=== PATIENT | male | born 1940 | race Caucasian/White ===

== ENCOUNTER 2022-05-28 06:59 | Observation (INO) ==
[~2022-05-28 06:59] MED LIST: LIDOCAINE 1% LOCAL 20 ML VIAL ONE
--- NOTE | 2022-05-28 08:06 | Pre Anesthesia Assessment ---
Date of Service May 28, 2022 Pre Sedation Assessment Vital Signs Temp Pulse Pulse Resp BP Pulse Ox O2 Del Method 05/29/22 11:25 36.5 C 67 18 128/65 96 Room Air 05/29/22 11:11 36.5 C 70 18 152/87 H 94 05/29/22 08:00 57 L 05/29/22 07:26 36.5 C 70 18 152/87 H 94 Room Air 05/29/22 03:05 36.9 C 58 L 18 121/66 95 Room Air 05/28/22 23:15 36.6 C 73 18 118/74 93 Room Air 05/28/22 19:13 36.4 C L 77 18 117/68 93 Room Air 05/28/22 16:00 62 20 119/73 97 Room Air 05/28/22 15:17 49 L Cardiovascular + regular rate and + regular rhythm + S1 normal, + S2 normal and + murmur (2/6 NEL) + femoral pulses present and + radial pulses present; no JVD and no carotid bruit no edema Respiratory no retractions and no uses accessory muscles + clear to auscultation bilaterally; no crackles, no rales, no rhonchi and no wheezes Pre-Sedation Airway Assessment Smoking Status: Former smoker Hx Sleep Apnea: No Short, Thick Neck: No Thyromental Distance: > or= 3.5 Finger Breadths Oral Cavity: + WNL Mallampati Class: II ASA: ASA3 NPO Status Date of Last Intake of Fluids: 05/28/22 Time of Last Intake of Fluids: 06:00 Date of Last Intake of Solid Food: 05/27/22 Time of Last Intake of Solid Foods: 22:00 Procedure Planning Contraindications for Sedation: none Current Medications Reviewed: Yes Notes The planned sedation has been discussed with the patient. Informed Consent was obtained. I have identified the patient, determined the appropriateness of sedation and have assessed the patient immediately prior to the procedure. All medicine(s) and interventions are by my order.
--- NOTE | 2022-05-28 08:06 | History & Physical Bridge Note ---
Date of Service May 28, 2022 History & Physical Bridge Note I have examined the patient, reviewed the History & Physical and in the interval since the performance of the History & Physical I have noted the following changes of clinical significance: no changes noted
[2022-05-28] MEDS ORDERED: niCARdipine HCL INJ 2.5 MG/ML 10 ML AMP ONE (08:15)
[2022-05-28] MEDS ORDERED: HEPARIN (PORCINE) 1000 UNIT/ML 10 ML (CATH LAB USE ONLY) ONE ×2 (08:15→09:47)
[2022-05-28] MEDS ORDERED: MIDAZOLAM HCL 1 MG/ML 2ML VIAL ONE ×3 (08:15→09:40)
[2022-05-28] MEDS ORDERED: fentaNYL citrate 100 MCG/2 ML VIAL ONE ×2 (08:15→09:40)
[2022-05-28] MEDS ORDERED: NITROGLYCERIN/D5W 100MCG/ML 20ML SYR ONE (08:16)
--- NOTE | 2022-05-28 09:30 | Post Anesthesia Assessment ---
Date of Service May 28, 2022 Post Sedation Assessment Vital Signs Temp Pulse Pulse Resp BP Pulse Ox O2 Del Method 05/29/22 11:25 36.5 C 67 18 128/65 96 Room Air 05/29/22 11:11 36.5 C 70 18 152/87 H 94 05/29/22 08:00 57 L 05/29/22 07:26 36.5 C 70 18 152/87 H 94 Room Air 05/29/22 03:05 36.9 C 58 L 18 121/66 95 Room Air 05/28/22 23:15 36.6 C 73 18 118/74 93 Room Air 05/28/22 19:13 36.4 C L 77 18 117/68 93 Room Air 05/28/22 16:00 62 20 119/73 97 Room Air 05/28/22 15:17 49 L Recovery Score Respiration: Deep Breath/Cough Circulation: +/-20% PreAnes Value Consciousness: Arouseable (by name) Oxygen Saturation: > 92% On Room Air Discharge Sedation Level of Care: Phase I Post Sedation Plan On clinical assessment, the patient appears to have tolerated the sedation without complications. Patient is recovering as anticipated. Patient will continue to be monitored by nursing and may be discharged when sedation discharge criteria are met per below protocol. Upon Completions of procedure up to 15 minutes continue every 5 minute vital signs and the P.A.R. score; then discharge to a Phase I or Fast Track to Phase II per the following guidelines: * Discharge Patient to appropriate Phase II area if PAR is 8 or greater or return to pre- procedure baseline. The post - procedure orders will be as directed. * If PAR score is less than 8 or not return to pre-procedure baseline then patient will follow Phase I monitoring till PAR is reached for Phase II. The Phase I may be done in procedure room or may call to secure a Phase I area. * If naloxone or flumazenil are used for reversal, hold in Phase I for continued monitoring from when last reversal dose was given for a minimum of 60 minutes or longer pending the nurse and/or physician discretion of patient condition before discharge to Phase II. Please call the Sedation Physician to re-evaluate and complete post-note for discharge to Phase II area. Do NOT discharge from procedure sedation or Phase 1 until post- sedation evaluation note is complete by procedure /sedation MD Sedation Discharge Instructions to be given to the patient at discharge to home.
--- NOTE | 2022-05-28 09:34 | Cardiac Catheterization ---
Cardiac Cath Procedure Full Procedure Date May 28, 2022 Pre-Procedure Diagnosis Pre-Procedure Diagnosis: Angina, Positive Stress Test and Cardiothoracic Symptom AUC Score AUC Score: 7 Post-Procedure Diagnosis Post-Procedure Diagnosis: Severe CAD and Elevated Intracardiac Pressures Procedure(s) Performed Procedure(s) Performed: Coronary Angiography and Left Heart Cath [employer] Specialist Александр Reaves DO Machine Worker(s) Gene STENCIL MACHINE OPERATOR Estimated Blood Loss Estimated Blood Loss: 5cc Medication(s) Medication(s): Fentanyl, Lidocaine 1% and Versed Summary of Findings 80% mid Lcx 50% mid LAD 15mmHg peak to peak gradient consistent with mild aortic stenosis. Hemodynamics Rest Ao:: 149/57/91 Final Ao: 140/65/96 LV: 151/3/19 Recommendations Recommendations: PCI without planned CABG Specimens Specimens: None Radiation Exposure (mGy) 590 Contrast (mls) 25 Fluids (cc crystalloids) Fluids (cc crystalloids): 136 nss Drains Drains: N/A Anesthesia Moderate sedation. Start 0837. End 0924. Sedation monitor: Arsenio WALLER. Procedural Complication(s) None I attest to the content of the Intraoperative Record and any orders documented therein. Any exceptions are noted below. 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 Lexiscan nuclear stress test performed demonstrating lateral and posterior ischemia. CAD Presenation: Positive Stress Test and Stable angina Anginal Classification: CCS III Coronary Anatomy Dominant: Right Left Main (% Stenosis): Normal LAD (% Stenosis): Proximal (20%) and Mid (60-70%, not significant per FFR, see separate report) D1 (% Stenosis): Proximal (30%) Circumflex (% Stenosis): Mid (80%) OM1 (% Stenosis): Normal OM2 (% Stenosis): Proximal (20%) L PL1 (% Stenosis): Normal (large vessel) L PL2 (% Stenosis): Normal (small vessel) RCA (% Stenosis): Proximal (20%) and Mid (20% diffuse) R PDA (% Stenosis): Normal Diagnostic Physicians Name: Александр Reaves DO Closure Device Percutaneous Entry Location: Radial (Unable to pass wire via radial access due to vasospasm.) Recommendations: PCI without planned CABG Intraprocedure Events Significant Disection: No Perforation: No
[2022-05-28] MEDS ORDERED: ADENOSINE IV SOLN 3 MG/ML 20 ML VIAL IV ONE (09:58)
[2022-05-28] MEDS: CLOPIDOGREL BISULFATE 300 MG TAB ONE ×2 (10:30→11:20)
[2022-05-28] MEDS ORDERED: ONDANSETRON INJ 2 MG/ML 2 ML VIAL IV PRN (12:38)
[2022-05-28] MEDS ORDERED: ACETAMINOPHEN 325 MG TAB PO PRN (12:38)
[2022-05-28] MEDS ORDERED: NITROGLYCERIN SL 0.4 MG/TAB TAB SL PRN (12:38)
--- NOTE | 2022-05-28 12:42 | Post Anesthesia Assessment ---
Date of Service May 28, 2022 Post Sedation Assessment Vital Signs Temp Pulse Resp BP Pulse Ox 05/28/22 10:30 52 L 14 129/85 99 05/28/22 10:18 53 L 16 123/67 98 05/28/22 07:22 98.2 F 77 20 135/78 97 Recovery Score Activity: Moves 4 extremities Respiration: Deep Breath/Cough Circulation: +/-20% PreAnes Value Consciousness: Fully Awake Oxygen Saturation: > 92% On Room Air Post Anesthesia Score: 10 Discharge Sedation Level of Care: Fast Track Phase II Post Sedation Plan On clinical assessment, the patient appears to have tolerated the sedation without complications. Patient is recovering as anticipated. Patient will continue to be monitored by nursing and may be discharged when sedation discharge criteria are met per below protocol. Upon Completions of procedure up to 15 minutes continue every 5 minute vital signs and the P.A.R. score; then discharge to a Phase I or Fast Track to Phase II per the following guidelines: * Discharge Patient to appropriate Phase II area if PAR is 8 or greater or return to pre- procedure baseline. The post - procedure orders will be as directed. * If PAR score is less than 8 or not return to pre-procedure baseline then patient will follow Phase I monitoring till PAR is reached for Phase II. The Phase I may be done in procedure room or may call to secure a Phase I area. * If naloxone or flumazenil are used for reversal, hold in Phase I for continued monitoring from when last reversal dose was given for a minimum of 60 minutes or longer pending the nurse and/or physician discretion of patient condition before discharge to Phase II. Please call the Sedation Physician to re-evaluate and complete post-note for discharge to Phase II area. Do NOT discharge from procedure sedation or Phase 1 until post- sedation anjana luation note is complete by procedure /sedation MD Sedation Discharge Instructions to be given to the patient at discharge to home.
[2022-05-28] MEDS ORDERED: SODIUM CHLORIDE 0.9% 1000ML 1,000 ML IV SCH (12:45)
--- NOTE | 2022-05-28 12:54 | Cardiac Catheterization ---
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 Cardiac Status Clinical evaluation leading to the procedure CAD Presenation: Positive Stress Test and Stable angina Anginal Classification: CCS III Diagnostic Physicians Name: Daryl Blake MD Closure Device Recommendations: PCI without planned CABG Cardiac Cath Procedure Full Procedure Date May 28, 2022 Pre-Procedure Diagnosis Pre-Procedure Diagnosis: Angina and Positive Stress Test AUC Score AUC Score: 7 Post-Procedure Diagnosis Post-Procedure Diagnosis: Severe CAD and Unsuccessful PCI Procedure(s) Performed Procedure(s) Performed: Coronary Angiography, PTCA and Fractional Flow [place] Life Skills Trainer Daryl Blake MD Generalist(s) Gene LYNNE Estimated Blood Loss Estimated Blood Loss: 15 Medication(s) Medication(s): Clopidogrel, Fentanyl, Heparin, Lidocaine 1%, Nicardipine, Nitroglycerin and Versed Summary of Findings Indication: Angina, abnormal stress test Access: 6 Fr right SUPERVISOR FLESHING Catheters: EBU 3.5 guide Findings: For full details of patient's coronary angiography please see cath report dictat ed by Dr. Reaves. Briefly, patient found to have moderate mid LAD disease and severe circumflex disease. Decision to FFR LAD and possible PCI of circumflex. FFR: -Left main cannulated with EBU3.5 guide -BMW wire placed into distal LAD -ACIST Catheter placed across stenosis -Pd/Pa 0.96 -FFR 0.89 -- PCI circumflex -- Antithrombotic therapy: Heparin, clopidogrel Procedure: Pre-procedure flow ENRRIQUE 3 Circular Head Saw Operator 50 wire passed across lesion into distal circumflex/OM With some difficulty able to pass 2.0 balloon across stenosis, dilated to high atmospheres but stenosis persistent Unable to pass 2.5 NC balloon across stenosis With the aid of a GuideLiner 2.5 compliant balloon passed across stenosis. Stenosis again dilated to high atmospheres but unable to expand mid segment. IC vasodilators administered Severe residual 90% stenosis in mid circumflex post balloon inflation. No evidence of dissection. Chest pain-free. ENRRIQUE-3 flow. Arterial Closure: Angio-Seal Summary: 1. Moderate nonobstructive mid LAD disease (FFR 0.89) 2. Unsuccessful attempted PCI of mid circumflex. Unable to expand heavily calcified lesion with 2.5 balloon to high atmospheres. Recommendations: To PCU for continued monitoring Loaded with clopidogrel 600 mg in Cigarette Carton Sealer Continue dual-antiplatelet therapy for at least 1 month Continue statin, and ASCVD risk factor modification Maximize antianginal therapy. If refractory anginal symptoms recommend repeat attempted PCI at tertiary center with atherectomy vs lithotripsy. Hemodynamics Rest Ao:: 130/58/87 Final Ao: 136/58/92 LV: -- Recommendations Recommendations: PCI without planned CABG Specimens Specimens: None Radiation Exposure (mGy) 2104 Contrast (mls) 115 Drains Drains: N/A Anesthesia Moderate sedation. Start 0924. End 1015 Sedation monitor: Arsenio WALLER. Procedural Complication(s) None Disposition PCU I attest to the content of the Intraoperative Record and any orders documented therein. Any exceptions are noted below. [facility] Card Cath Procedure Codes Cardiac Catheterization Procedure 1: Cardiovascular Cath Procedures: 76902 (Doppler) Pressure Wire Moderate Sedation Procedure 1: Sedation/Anesthesia: 37308 Mod Sedation by the same physician; Ea [id number] Minutes Angioplasty Procedure 1: Cardiovascular Angioplasty Procedures: 72336 PTCA; Single mafor coronary artery or branch RC LC LD PG Care Time/CCT Total # of Minutes Spent Total Time Spent with Patient: Total time spent is greater than 50% in coordination of care (as documented) at patient's floor/unit and/or counseling patient:
--- NOTE | 2022-05-28 16:53 | Electrocardiogram Report ---
Test Reason : Blood Pressure : / mmHG Vent. Rate : 047 BPM Atrial Rate : 047 BPM P-R Int : 202 ms QRS Dur : 106 ms QT Int : 488 ms P-R-T Axes : 060 -51 047 degrees QTc Int : 431 ms Sinus bradycardia Left anterior fascicular block Abnormal ECG When compared with ECG of 05-APR-2013 11:28, Left anterior fascicular block is now Present Confirmed by Daryl Jaquez ([id number]) on 05/28/2022 4:53:04 PM Referred By: Mago Hallman Confirmed By:Joshua Jaquez
[2022-05-28] MEDS ORDERED: GABAPENTIN 100 MG CAP PO SCH (21:00)
[2022-05-29] MEDS ORDERED: LEVOTHYROXINE SODIUM 100 MCG TABLET PO SCH (06:30)
[2022-05-29 08:13] LABS: Basophils # (auto) 0.01 K/uL (0-0.2); Basophils % (auto) 0.2 %; Eosinophils # (auto) 0.01 K/uL (0-0.50); Eosinophils % (auto) 0.2 %; Hematocrit (blood only) 33.5 % (40.1-51.0); Hemoglobin 11.5 g/dl (14.0-18.0); Immature Granulocytes # (auto) 0.07 K/uL (0.00-0.02); Immature Granulocytes % (auto) 1.1 %; Lymphocytes % (auto) 13.1 %; Mean Corpuscular Hgb Conc 34.3 g/dL (32.0-36.0); Mean Corpuscular Volume 96.3 fL (80.0-100.0); Monocytes # (auto) 0.47 K/uL (0.24-0.82); Monocytes % (auto) 7.7 %; Neutrophils # (auto) 4.73 K/uL (1.4-6.5); Neutrophils % (auto) 77.7 %; Platelet Count 133 K/uL (130-400); RDW Coefficient of Variation 16.1 % (11.5-14.5); Red Blood Count 3.48 M/uL (4.63-6.08); White Blood Count 6.09 K/ul (4.8-10.8)
[2022-05-29 08:39] LABS: BUN Creatinine Ratio 25.9 (10-20); Creatinine Clr Calc Pharmacy 63.4 ml/min; Est GFR (African American) 95.9 ml/min; Est GFR (Non-African American) 82.8 ml/min; Potassium 3.5 mmol/L (3.5-5.1)
[2022-05-29] MEDS ORDERED: predniSONE 10 MG TABLET PO SCH (09:00)
[2022-05-29] MEDS ORDERED: CHOLECALCIFEROL 1,000 UNITS 25 MCG TAB PO SCH (09:00)
[2022-05-29] MEDS ORDERED: POTASSIUM CHLORIDE 10 MEQ TABCR PO SCH (09:00)
[2022-05-29] MEDS ORDERED: lisinopril 2.5 MG TAB PO SCH (09:00)
[2022-05-29] MEDS ORDERED: ISOSORBIDE MONO EXTENDED REL 30 MG TABCR PO SCH (09:00)
[2022-05-29] MEDS ORDERED: FINASTERIDE 5 MG TAB PO SCH (09:00)
[2022-05-29] MEDS ORDERED: ASPIRIN 81 MG ECTAB PO SCH (09:00)
[2022-05-29] MEDS ORDERED: CLOPIDOGREL BISULFATE 75 MG TAB PO SCH (09:00)
[2022-05-29] MEDS ORDERED: ATORVASTATIN 20 MG TAB PO SCH (09:00)
[2022-05-29] MEDS ORDERED: ALFUZOSIN HCL 10 MG TAB PO SCH (09:00)
[2022-05-29] MEDS ORDERED: MULTIVITAMIN TAB PO SCH (09:00)
[2022-05-29] MEDS ORDERED: FLUTICASONE PROPIONATE NA SPR 16 GM BTL SCH (09:00)
--- NOTE | 2022-05-29 15:04 | Cardiology Progress Note ---
Date of Service May 29, 2022 Assessment & Plan (1) Coronary artery disease with stable angina pectoris: Plan Cardiac catheterization performed 05/28/2022 demonstrating severe left circumflex disease and moderate mid LAD stenosis. The LAD stenosis was not significant per FFR. Attempted PCI of the left circumflex however unsuccessful. The lesion is significantly calcified. Low-dose long-acting nitrates added. We will arrange for cardiology follow-up in 1-2 weeks. Consider referral to tertiary care for rotational atherectomy. Dual antiplatelet therapy recommended for minimum of 1 month post attempted PCI per recommendations of interventional cardiology. Patient provided with prescription for both isosorbide monohydrate and clopidogrel. Post cardiac catheterization activity restrictions reviewed. Patient will be discharged home today. Admission and Anticipated Discharge Date Admission Date: May 28, 2022 Subjective Patient seen examined at the bedside. No recurrent chest discomfort overnight. Telemetry reveals sinus rhythm. Tolerating current medication. Has multiple questions regarding outpatient follow-up and medications. Offers no other concerns/complaints. Review of Systems Review of Systems: All systems reviewed & are unremarkable except as noted in Subjective Physical Exam ENMT: Mallampati Class: II Respiratory: no retractions and does not use accessory muscles Auscultation: lungs clear to auscultation bilaterally; no crackles, no rales, no rhonchi and no wheezes Cardiovascular: Rate/Rhythm: regular rate and regular rhythm Heart Sounds: normal S1, normal S2 and + murmur (2/6 NEL) Vessels: femoral pulses present and radial pulses present; no JVD and no carotid bruit Extremities: no edema Results & Data ([facility]) Vital Signs (Past 12 Hours) Vital Signs Temp Pulse Pulse Resp BP Pulse Ox O2 Del Method 05/29/22 11:25 36.5 C 67 18 128/65 96 Room Air 05/29/22 11:11 36.5 C 70 18 152/87 H 94 05/29/22 08:00 57 L 05/29/22 07:26 36.5 C 70 18 152/87 H 94 Room Air 05/29/22 03:05 36.9 C 58 L 18 121/66 95 Room Air
== END 2022-05-29 12:43 | disposition home or self-care (01) ==
LOC: CC 06:59 → 2S 06:59